=== PATIENT | male | born 1955 | race Caucasian/White ===

== ENCOUNTER → 2023-05-04 06:20 | Outpatient (REF) | payer BC, MEDICARE, OTHER, SELFPAY ==
[2023-05-04 10:02] LABS: % Basophils 1.1 % (0-2); % Eosinophils 2.1 % (0-6); % Immature Granulocytes 0.3 % (0-0.5); % Lymphocytes 21.7 % (20.5-51.1); % Monocytes 6.9 % (1.7-9.3); % Neutrophils 67.9 % (42.2-75.2); Absolute Basophils 0.1 10^3/uL (0-0.2); Absolute Eosinophils 0.2 10^3/uL (0-0.7); Absolute Lymphocytes 1.6 10^3/uL (1.2-3.4); Absolute Monocytes 0.5 10^3/uL (0.1-0.6); Hematocrit 38.9 % (39.0-52.0); Hemoglobin 13.8 g/dL (13.0-18.0); Mean Corp Hgb Conc. 35.5 g/dL (33.0-37.0); Mean Corpuscular Hgb 33.1 pg (27.0-31.0); Mean Corpuscular Volume 93.3 fL (80.0-94.0); Mean Platelet Volume 9.4 fL (7.4-10.4); Nucleated Red Blood Cells % 0 % (-); Platelet Count 225 10^3/uL (130-400); Red Blood Cell Count 4.17 10^6/uL (4.70-6.10); Red Cell Dist. Width 12.3 % (11.5-14.5); Urine Albumin Trace (Neg - Trace); Urine Bilirubin Negative (Negative); Urine Character Clear (Clear); Urine Color Yellow; Urine Glucose Negative (Negative); Urine Ketone Negative (Negative); Urine Leukocyte Trace (Negative); Urine Nitrite Negative (Negative); Urine Occult Blood Negative (Negative); Urine Urobilinogen Negative (Neg - 1+); White Blood Cell Count 7.3 10^3/uL (4.8-10.8)
[2023-05-04 10:12] LABS: Urine Squamous Cell 0-2 /LPF (Few)
[2023-05-04 10:13] LABS: Urine Red Blood Cell 0-2 /HPF (0-2)
[2023-05-04 10:14] LABS: Urine Bacteria Few (Negative)
[2023-05-04 10:15] LABS: ALT (SGPT) 33 U/L (0-50); AST (SGOT) 29 U/L (17-59); Albumin 3.5 g/dl (3.5-5.0); Alkaline Phosphatase 64 U/L (38-126); Blood Urea Nitrogen 18 mg/dl (9-20); Calcium 8.6 mg/dl (8.4-10.2); Carbon Dioxide 32 mmol/L (22-30); Chloride 99 mmol/L (98-107); Glucose 97 mg/dl (70-99); HDL Cholesterol 38 mg/dl; LDL Cholesterol, Calculated 33 mg/dl; Sodium 138 mmol/L (135-145); Total Bilirubin 1.5 mg/dl (0.2-1.3); Total Cholesterol 89 mg/dl (50-199); Total Protein 5.9 g/dl (6.3-8.2); Triglyceride 92 mg/dl (10-149); Very Low Density Lipoprotein 18 mg/dl (0-30); eGFR > 60.00
[2023-05-04 10:26] LABS: Free T4 0.88 ng/dl (0.78-2.19); Vitamin D, 25-OH*** 37.4 ng/mL (30-80)
[2023-05-04 10:39] LABS: TSH 1.91 uIU/ml (0.47-4.68)
[2023-05-04 11:00] LABS: Vitamin B12 887 pg/ml (239-931)
[2023-05-04 12:40] LABS: Glycohemoglobin (HgbA1c) 6.1 % (4.0-5.6)
[2023-05-04 17:00] LABS: PSA, Total - Diagnostic 9.05 ng/ml (0.0-4.0)
== END ==
LOC: HWLAB 06:20
PROVIDERS: ATTENDING PHYSICIAN Family Medicine; FAMILY PHYSICIAN Family Medicine
DX: R97.20 Elevated prostate specific antigen [PSA] (principal); R73.01 Impaired fasting glucose; I10 Essential (primary) hypertension; E78.2 Mixed hyperlipidemia; D64.9 Anemia, unspecified; Z86.31 Personal history of diabetic foot ulcer; R30.0 Dysuria
CPT/HCPCS: 36415; 80053; 80061; 81003; 81015; 82306; 82607; 83036; 84153; 84439; 84443; 85025

== ENCOUNTER → 2023-09-25 14:58 | Outpatient (REF) | payer BC, MEDICARE, OTHER, SELFPAY | LOC: HWRAD 14:58 | PROVIDERS: ATTENDING PHYSICIAN Internal Medicine; FAMILY PHYSICIAN Family Medicine | DX: J45.901 Unspecified asthma with (acute) exacerbation (principal); Z87.891 Personal history of nicotine dependence; R91.1 Solitary pulmonary nodule | CPT/HCPCS: 71250 ==

== ENCOUNTER → 2024-01-15 06:01 | Outpatient (REF) | payer BC, MEDICARE, OTHER, SELFPAY ==
[2024-01-15 10:19] LABS: PSA, Total - Diagnostic 6.45 ng/ml (0.0-4.0)
== END ==
LOC: HWLAB 06:01
PROVIDERS: ATTENDING PHYSICIAN Nurse Practitioner Family; FAMILY PHYSICIAN Family Medicine
DX: R97.20 Elevated prostate specific antigen [PSA] (principal); R31.29 Other microscopic hematuria
CPT/HCPCS: 36415; 84153

== ENCOUNTER → 2024-03-05 06:16 | Outpatient (REF) | payer BC, MEDICARE, OTHER, SELFPAY ==
[2024-03-05 09:19] LABS: Glycohemoglobin (HgbA1c) 5.6 % (4.0-5.6)
[2024-03-05 09:22] LABS: ALT (SGPT) 17 U/L (0-50); AST (SGOT) 22 U/L (17-59); Albumin 4.2 g/dl (3.5-5.0); Alkaline Phosphatase 59 U/L (38-126); Blood Urea Nitrogen 16 mg/dl (9-20); Calcium 8.5 mg/dl (8.4-10.2); Carbon Dioxide 28 mmol/L (22-30); Chloride 102 mmol/L (98-107); Glucose 112 mg/dl (70-99); Sodium 140 mmol/L (135-145); Total Protein 6.6 g/dl (6.3-8.2); eGFR > 60.00
== END ==
LOC: HWLAB 06:16
PROVIDERS: ATTENDING PHYSICIAN Nurse Practitioner Family
DX: R73.01 Impaired fasting glucose (principal)
CPT/HCPCS: 36415; 80053; 83036

== ENCOUNTER → 2024-07-23 11:24 | Outpatient (REF) | payer BC, MEDICARE, OTHER, SELFPAY ==
[2024-07-23 16:54] LABS: % Basophils 0.9 % (0-2); % Eosinophils 1.5 % (0-6); % Immature Granulocytes 0.3 % (0-0.5); % Lymphocytes 22.1 % (20.5-51.1); % Monocytes 6.9 % (1.7-9.3); % Neutrophils 68.3 % (42.2-75.2); Absolute Basophils 0.1 10^3/uL (0-0.2); Absolute Eosinophils 0.1 10^3/uL (0-0.7); Absolute Lymphocytes 1.5 10^3/uL (1.2-3.4); Absolute Monocytes 0.5 10^3/uL (0.1-0.6); Absolute Neutrophils 4.5 10^3/uL (1.4-6.5); Hematocrit 42.6 % (39.0-52.0); Hemoglobin 15.1 g/dL (13.0-18.0); Mean Corp Hgb Conc. 35.4 g/dL (33.0-37.0); Mean Corpuscular Hgb 32.8 pg (27.0-31.0); Mean Corpuscular Volume 92.4 fL (80.0-94.0); Mean Platelet Volume 9.6 fL (7.4-10.4); Nucleated Red Blood Cells % 0 % (-); Platelet Count 244 10^3/uL (130-400); Red Blood Cell Count 4.61 10^6/uL (4.70-6.10); Red Cell Dist. Width 12.4 % (11.5-14.5); White Blood Cell Count 6.6 10^3/uL (4.8-10.8)
[2024-07-23 17:03] LABS: ALT (SGPT) 26 U/L (0-50); AST (SGOT) 26 U/L (17-59); Albumin 4.1 g/dl (3.5-5.0); Alkaline Phosphatase 72 U/L (38-126); Blood Urea Nitrogen 16 mg/dl (9-20); Calcium 9.1 mg/dl (8.4-10.2); Carbon Dioxide 30 mmol/L (22-30); Chloride 104 mmol/L (98-107); Glucose 99 mg/dl (70-99); HDL Cholesterol 40 mg/dl; LDL Cholesterol, Calculated 62 mg/dl; Potassium 4.5 mmol/L (3.5-5.1); Sodium 141 mmol/L (135-145); Total Bilirubin 1.1 mg/dl (0.2-1.3); Total Cholesterol 131 mg/dl (50-199); Total Protein 6.8 g/dl (6.3-8.2); Triglyceride 146 mg/dl (10-149); Very Low Density Lipoprotein 29 mg/dl (0-30); eGFR > 60.00
[2024-07-23 17:22] LABS: Free T4 0.89 ng/dl (0.78-2.19)
[2024-07-23 17:36] LABS: PSA, Total - Diagnostic 7.52 ng/ml (0.0-4.0); TSH 1.31 uIU/ml (0.47-4.68)
[2024-07-24 10:52] LABS: Glycohemoglobin (HgbA1c) 5.6 % (4.0-5.6)
== END ==
LOC: HWLAB 11:24
PROVIDERS: ATTENDING PHYSICIAN Family Medicine; REFERRING PHYSICIAN Nurse Practitioner
DX: R97.20 Elevated prostate specific antigen [PSA] (principal); R35.1 Nocturia; Z86.39 Personal history of other endocrine, nutritional and metabolic disease; R73.03 Prediabetes; I10 Essential (primary) hypertension; E78.2 Mixed hyperlipidemia
CPT/HCPCS: 36415; 80053; 80061; 83036; 84153; 84439; 84443; 85025

== ENCOUNTER → 2024-09-12 11:07 | Outpatient (REF) | payer BC, MEDICARE, OTHER, SELFPAY | LOC: HWLAB 11:07 | PROVIDERS: ATTENDING PHYSICIAN Family Medicine | DX: R97.20 Elevated prostate specific antigen [PSA] (principal) | CPT/HCPCS: 36415; G0103 ==

== ENCOUNTER → 2024-10-16 12:52 | Outpatient (REF) | payer BC, MEDICARE, OTHER, SELFPAY | LOC: HWRAD 12:52 | PROVIDERS: ATTENDING PHYSICIAN Family Medicine | DX: E78.2 Mixed hyperlipidemia (principal) | CPT/HCPCS: 75571 ==

== ENCOUNTER → 2024-10-17 08:44 | Outpatient (REF) | payer BC, MEDICARE, OTHER, SELFPAY ==
[2024-10-17 12:30] LABS: Hematocrit 41.1 % (39.0-52.0); Hemoglobin 14.1 g/dL (13.0-18.0); Mean Corp Hgb Conc. 34.3 g/dL (33.0-37.0); Mean Corpuscular Volume 94.7 fL (80.0-94.0); Nucleated Red Blood Cells % 0 % (-); Platelet Count 229 10^3/uL (130-400); Red Cell Dist. Width 12.6 % (11.5-14.5)
[2024-10-17 13:11] LABS: ALT (SGPT) 19 U/L (0-50); AST (SGOT) 23 U/L (17-59); Albumin 4.3 g/dl (3.5-5.0); Alkaline Phosphatase 62 U/L (38-126); Blood Urea Nitrogen 19 mg/dl (9-20); Calcium 8.9 mg/dl (8.4-10.2); Carbon Dioxide 31 mmol/L (22-30); Chloride 106 mmol/L (98-107); Glucose 106 mg/dl (70-99); HDL Cholesterol 41 mg/dl; LDL Cholesterol, Calculated 65 mg/dl; Potassium 4.6 mmol/L (3.5-5.1); Sodium 140 mmol/L (135-145); Total Protein 6.9 g/dl (6.3-8.2); Very Low Density Lipoprotein 19 mg/dl (0-30); eGFR > 60.00
[2024-10-17 13:34] LABS: Glycohemoglobin (HgbA1c) 5.6 % (4.0-5.6); PSA, Total - Diagnostic 6.46 ng/ml (0.0-4.0); TSH 1.75 uIU/ml (0.47-4.68)
== END ==
LOC: HWLAB 08:44
PROVIDERS: ATTENDING PHYSICIAN Family Medicine
DX: R97.20 Elevated prostate specific antigen [PSA] (principal); Z86.39 Personal history of other endocrine, nutritional and metabolic disease; E78.2 Mixed hyperlipidemia; R73.03 Prediabetes
CPT/HCPCS: 36415; 80053; 80061; 83036; 84153; 84443; 85025

== ENCOUNTER 2024-12-14 23:52 | Observation (INO) | payer BC, MEDICARE, OTHER, SELFPAY ==
[2024-12-14 19:07] VITALS: BP 145/81
[2024-12-14 19:38] VITALS: BP 129/78
[2024-12-14 19:55] VITALS: BMI 30.8
[2024-12-14 20:04] VITALS: BP 125/78; BP 138/82; BP 149/79; PULSE 54; PULSE 57; PULSE 62
--- NOTE | 2024-12-14 20:05 | EDRN ---
Pt noted dizziness around 1730 when he was outside doing 'stuff'. Pt got a bad cramp in his leg, went up to hgis groin and 'felt like somebody cut me with a knife' so pt drank 3 bottles water in 5 minutes. within 30 minutes, cramp went away but pt
developed dizziness and 'felt like I was walking on a sponge, like I was taking a really long stride but I was not going any faster.' says pt kept saying he did not feel good. No headache, n/v, fever/chills/cough, cp, sob. Pt says he feels
weak and tired. Pt was outside all day in the heat. Pt notes dizziness when he stands up, not while at rest or sitting. Pt also has a stuffy nose.
[2024-12-14] MEDS: NSS 1000 IV ×2 (21:12→23:22)
[2024-12-14 21:22] LABS: Hematocrit 39.8 % (39.0-52.0); Hemoglobin 14.3 g/dL (13.0-18.0); Mean Corp Hgb Conc. 35.9 g/dL (33.0-37.0); Mean Corpuscular Volume 90.7 fL (80.0-94.0); Nucleated Red Blood Cells % 0 % (-); Platelet Count 239 10^3/uL (130-400); Red Cell Dist. Width 12.1 % (11.5-14.5)
[2024-12-14 21:38] LABS: ALT (SGPT) 16 U/L (0-50); AST (SGOT) 22 U/L (17-59); Albumin 4.3 g/dl (3.5-5.0); Alkaline Phosphatase 70 U/L (38-126); Blood Urea Nitrogen 20 mg/dl (9-20); Calcium 8.9 mg/dl (8.4-10.2); Carbon Dioxide 29 mmol/L (22-30); Chloride 105 mmol/L (98-107); Estimated Creatinine Clearance 96 ml/min; Glucose 101 mg/dl (70-99); Magnesium 2.4 mg/dl (1.6-2.3); Potassium 3.7 mmol/L (3.5-5.1); Sodium 141 mmol/L (135-145); Total Protein 7.1 g/dl (6.3-8.2); eGFR > 60.00
[2024-12-14 21:50] LABS: Troponin I < 0.012 ng/ml
[2024-12-14 22:08] VITALS: BP 128/79
--- NOTE | 2024-12-14 22:12 | EDRN ---
Dr Schmitz asked that pt get up and walk around to see how he feels. Pt feels much better. Ambulatory to bathroom
--- NOTE | 2024-12-14 23:08 | ED.GENMED ---
History of Present Illness
General
Chief Complaint: Dizziness
Source: patient and spouse
Exam Limitations: none
Time Seen by Provider: 12/14/24 19:51
Nursing documentation reviewed up to this point in time: agreed with
History of Present Illness
History of Present Illness:
Patient presents to ED secondary to persistent dizzy sensation with near syncope this afternoon. Patient states that he was outside working for approximately 2 hours, without drinking much fluids. When he came inside, he started to experience leg
cramping sensation. Patient proceeded to drink water with gradual resolution of leg cramping sensation. However, when he got up to walk, he started to feel dizziness with near syncope, which has continued. Denies headache. Denies blurred vision.
Denies difficulty with speech. Denies loss of sensation or weakness. Denies recent illness. Denies recent change in medications or diet. Denies previous history of similar symptoms. Per spouse, patient was and continues to appear flushed.
Past History
Past History
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
ED Past Surgical History: Cardiac (Radiofrequency ablation for WPW) and Other (Left leg vein stripping)
Social History
Tobacco: Former smoker
Alcohol: Occasional
Personal:
Living: with family
Employment: Employed
Family History
Family History: Other (Noncontributory)
Review of Systems
Review of Systems
Allergies reviewed?: Yes
All Other Systems: ROS reviewed and negative except as documented in HPI and ROS
Constitutional: Reports no symptoms
Respiratory: Reports no symptoms
Cardiac: Reports no symptoms
ABD/GI: Reports no symptoms
Musculoskeletal: Reports muscle pain
Skin: Reports no symptoms
Neurological: Reports dizzy
Phy Exam
Physical Exam
Physical Exam:
Physical Exam
General: mild distress, not acutely ill. afebrile
Head: nc/at. eomi. no nystagmus
Neck: supple. no meningeal signs.
Heart: s1/s2 regular rate and rhythm
Lungs: no acute respiratory distress. clear bilaterally
Abdomen: normal bowel sounds. not tender.
Neuro: alert and oriented x 3. no focal neurological deficits. normal speech
Skin: no rash
Psychiatric: well kept. interactive and cooperative
Extremities: no edema. no calf tenderness.
Course
Orders/Labs/Results
Orders:
Orders
12/14/24 19:15
EKG [Electrocardiogram (*1)] Urgent
Reason for Study: Vertigo / Dizzy
12/14/24 19:16
EKG- Treatment ONCE
12/14/24 20:56
0.9% Sodium Chloride 1000 ml [Nss] 1,000 ml IV BOLUS
12/14/24 21:13
Complete Blood Count/With Diff Urgent
Comprehensive Metabolic Panel Urgent
Creatine Phosphokinase Urgent
Comment: ADD ON
Magnesium Urgent
Troponin I Urgent
12/14/24 23:08
CT Head & Neck Angio W/wo IV Urgent
Comment:
Reason For Exam: dizziness
12/14/24 23:10
Add On- LAB Urgent
Tests Added?: CPK
12/14/24 23:15
0.9% Sodium Chloride 1000 ml [Nss] 1,000 ml IV 125 mls/hr
12/14/24 23:42
Admit/Transfer Patient As Directed
Co-Sign Provider:
Level of Care: Observation services
Assign to:: Telemetry
Physician / Group: Ren
Diagnosis: dizziness
Reason for Telemetry: Syncope
Date to Stop Telemetry: 12/16/24
Time to Stop Telemetry: 11:00
PRN Pain Medication Management As Directed
May give lesser potent ordered pain med per pt: Yes
preference::
Protocol:: Medication orders for pain may be administered in a
manner that supports deferring to patient preference
when the pt is:
- Requesting an ordered lesser potent pain medication.
Least to most potent pain medications are defined
as: acetaminophen < NSAID < tramadol < opioids
(morphine, oxycodone, hydromorphone).
- Requesting a lesser dose of the same medication IF
ORDERED.
- Requesting a less intrusive route of administration
if both routes are prescribed by the provider (PO <
IV).
12/14/24 23:44
Code Status As Directed
Resuscitation Status: Full Code
12/16/24 11:00
DC Protocol for Telemetry ONCE
Abnormal Lab Results
12/14/24
21:13
RBC 4.39 L 10^6/uL
(4.70-6.10)
MCH 32.6 H pg
(27.0-31.0)
Absolute Monos (auto) 0.8 H 10^3/uL
(0.1-0.6)
Monocytes % 10.2 H %
(1.7-9.3)
Glucose 101 H mg/dl
(70-99)
Magnesium 2.4 H mg/dl
(1.6-2.3)
Total Bilirubin 1.8 H mg/dl
(0.2-1.3)
Creatine Kinase 214 H U/L
(55-170)
12/14/24 21:13
12/14/24 21:13
Vital Signs
Initial and Last Documented VS:
Initial Vital Signs
Temp Pulse Resp BP Pulse Ox
97.7 F 55 20 145/81 99
12/14/24 19:07 12/14/24 19:07 12/14/24 19:07 12/14/24 19:07 12/14/24 19:07
Last Documented Vital Signs
Temp Pulse Resp BP Pulse Ox
97.7 F 52 17 132/79 97
12/14/24 19:07 12/15/24 01:00 12/15/24 01:00 12/15/24 01:00 12/15/24 01:00
MDM/Problems Addressed
MDM/Problems Addressed:
History and exam consistent with likely symptoms secondary to heat exhaustion/dehydration, possible heatstroke. However, despite IV fluids, patient remains symptomatic, especially when ambulating. As such, patient will be admitted for further
evaluation and treatment, with continued IV fluid. Will obtain CT angiogram head and neck.
*Pulse Oximetry
SaO2: 96
Oxygen Mode of Delivery: Room air
Patient hypoxic: no
*Critical Care Note
Total Time (30-74mins, 75-104mins- exclusive of procedures): Not Applicable
ED Attending Note
-
Portions of this chart may have been created with voice recognition software.� Occasional wrong word or��sound alike� substitutions may have occurred due to the inherent limitations of voice recognition software.
Discharge Plan
Departure
Patient Disposition: Admit
Date of Disposition: 12/14/24
Time of Disposition: 23:15
Admit to: Telemetry
Presentation/result/management discussed w/ accepting MD/DO: Hospitalist
Discharge Problem:
Dizziness
Interventions
Interventions:
*Risk Screen - Suicide Last Done: 12/14/24 19:07
*General Assessment Last Done: 12/14/24 19:07
*Neglect/Abuse Screening Last Done: 12/14/24 19:07
*ED COVID-19 Vaccine History Last Done: 12/14/24 19:07
ED- Neurological Assessment Last Done: 12/14/24 20:05
ED- Cardiac Assessment Last Done: 12/14/24 20:05
[2024-12-14 23:25] VITALS: BP 136/76
--- NOTE | 2024-12-14 23:30 | HPS.HSE ---
Family Physician
-
Family Physician: NOT KNOW UNKNOWN - PT DOES
Chief Complaint
-
Dizziness
History of Present Illness
This is a 69-year-old with past medical history significant for Zdzet-Pyrlmmorq-Dpstu syndrome status post tract ablation, hypertension, hyperlipidemia, obesity, cervical spine stenosis presented to the emergency department with persistent dizziness.
Stated that he was working outside for approximately 2 hours and then developed crampy sensation in his leg bilaterally and radiating of his right leg. He felt this was likely secondary to dehydration. He went inside to drink some water with
gradual resolution of the cramps. He sat down and had dinner. After dinner he reported that when he got up he felt dizzy. He denies passing out. He reported that the dizziness was worse with walking and standing and improved when he sat down.
He says that if he moves his head he might have some dizziness but it was not clear. He denies any spinning sensation. He denies any nausea vomiting or diaphoresis. He denied having any palpitations. He denied any chest pain. He denies any
shortness of breath. He denies any focal neurological deficits including numbness tingling weakness. He has no diaphoresis. He denies any recent changes in his medication. According to spouse patient appears flushed.
In the emergency department he was afebrile, blood pressure was 128/80 with a pulse rate of 49 and he was satting at 96% on room air. ECG showed sinus bradycardia rate of 49 and otherwise normal. This initial troponin was negative.
CBC was unremarkable. Electrolytes BUN and creatinine were normal.
Medical History
Past Medical History
Past Medical History: Reports Arrhythmia (WPW status post ablation, PVCs), GERD, HTN, Hypercholesterolemia and Other (Morbid obesity, migraine headaches,)
Past Surgical History: Reports None and Other (Brother: CVA (2 mos ago), Asthma, DM Father: DM, CVA (70s) Mother: DM)
Social History
Tobacco: Former Smoker
Alcohol: None
Drug: None
Family History
Family History: Not pertinent
Allergies / Home Medications
Allergies reflects when Allergies were last updated in [facility].
Home Medications with original date entered in [facility]
Allergy/Medication List:
Allergies
Allergy/AdvReac Type Severity Reaction Status Date / Time
No Known Allergies Allergy Verified 12/14/24 19:14
Home Medications
cyclobenzaprine 10 mg tablet 10 mg PO TIDPRN PRN muscle tightness/spasm #30 tabs 09/26/14
finasteride 1 tab PO DAILY 12/14/24
hydrochlorothiazide 1 tab PO DAILY 12/14/24
metoprolol succinate 50 mg tablet,extended release 24 hr 50 mg PO BID 12/14/24
tamsulosin 0.4 mg capsule 0.8 mg PO DAILY 12/14/24
valsartan 1 tab PO DAILY 12/14/24
Review of Systems
-
Constitutional: Reports No Symptoms
EENT: Reports No Symptoms
Respiratory: Denies Cough or Trouble Breathing
Cardiac: Reports Syncope; Denies Chest Pain, Diaphoresis or Palpitations
Abdomen/GI: Reports No Symptoms
: Reports No Symptoms
Musculoskeletal: Reports No Symptoms
Skin: Reports No Symptoms
Neurological: Reports Dizzy
Endocrine: Reports No Symptoms
Hematologic/Lymphatic: Reports No Symptoms
Psych: Reports No Symptoms
Physical Exam
Vital Signs
Vital Signs
Temp Pulse Resp BP Pulse Ox
97.7 F 49 22 128/79 96
12/14/24 19:07 12/14/24 22:08 12/14/24 22:08 12/14/24 22:08 12/14/24 23:08
Physical Exam
General: Well Nourished and No Apparent Distress
HEENT: NormoCephalic, Anicteric, Moist mucous membranes, PERRLA and Other (Evident rhinorrhea. No posterior pharyngeal erythema.)
Respiratory: Clear; No Wheezes, Rales or Rhonchi
Cardiac: S1/S2 and Bradycardia; No Murmur, Rub, Gallop, Peripheral Edema or Calf Tenderness
GI: Soft, Non Tender, Non Distended and Normal Bowel Sounds
Musculoskeletal: No Clubbing, No Cyanosis and No Edema
Neuro: AO x 3 and Nonfocal/grossly intact
Hematologic/Lymphatic: No Lymphadenopathy
Laboratory Results
-
12/14/24 21:13
12/14/24 21:13
Laboratory Results
Total Bilirubin 1.8 mg/dl (0.2-1.3) H 12/14/24 21:
AST 22 U/L (17-59) 12/14/24 21:
ALT 16 U/L (0-50) 12/14/24 21:
Alkaline Phosphatase 70 U/L (38-126) 12/14/24 21:13
Troponin I < 0.012 ng/ml 12/14/24 21:13
Data Reviewed
-
Medical Tests (Nuc Med, Echo, EKG etc): Image Personally Visualized and interpreted
Lab Data: Labs Reviewed by me
Old Records: Reviewed
Impression/Plan
-
IMPRESSION:
69-year-old with past medical history significant for Pqgxr-Cilzmnmze-Wgbek status post tract ablation, hypertension, hyperlipidemia presenting to the emergency department with episode of dizziness. He appeared to have some mild dehydration after
some exertion earlier in the day and when he stood up in his kitchen he had a near syncopal episode. Spouse reported him being apparently flushed. His workup in the ED was unremarkable with normal troponin, ECG with a sinus bradycardia on
metoprolol, electrolytes BUN/creatinine were normal. CBC normal. He is currently asymptomatic. No focal neurological deficits.
PLAN:
Near Syncope - suspect orthostatic based on hx of symptoms possibly due to dehydration + effective beta blocked w/ sinus arun. Has normal vitals otherwise.
- admit to telemetry observation
- getting CT angio of head and neck
- telemetry x 24 hours
- iv fluids overnight
- orthostatic vs
- echo
- no cp or sb, no indication for PE
- holding hctz, continue his valsartan
- monitor on his current metoprolol, if persistently arun, reduce dose to 25 bid
- cardiology consult
DVT PPX - lovenox sq
Code status - Full Code
[2024-12-15] VITALS (8 sets, daily range): BP systolic 132–155; BP diastolic 73–90; PULSE 48–53; BMI 30.3
[2024-12-15] MEDS: NSS 1000 IV (06:39)
[2024-12-15] MEDS: TOPROL XL 25 MG PO (07:44)
[2024-12-15] MEDS: PROSCAR 5 MG PO (07:44)
--- NOTE | 2024-12-15 08:05 | W.PN.HOSP.TC ---
Today's Communication/Plan
-
IVF completed
cont monitoring on Tele
Home Valsartan resumed with holding parameters.
Likely Discharge tomorrow if remains stable/cont to improve
Assessment / Plan
Assessment / Plan
Physical Exam
General: No acute distress, appears comfortable at this time
HEENT: NormoCephalic, Anicteric, Moist mucous membranes, PERRLA
Respiratory: Clear to auscultation b/l
Cardiac: S1/S2 Bradycardia; No Murmur, Rub, Gallop
GI: Soft, Non Tender, Non Distended and Bowel sounds present
Musculoskeletal: No Clubbing, No Cyanosis and No Edema
Neuro: AO x 3 conversant coherent
Psych: Calm
69-year-old with past medical history significant for Iwkil-Wvvquxqej-Cbilr status post tract ablation, hypertension, hyperlipidemia presenting to the emergency department with episode of dizziness. He appeared to have some mild dehydration after
some exertion earlier in the day and when he stood up in his kitchen he had a near syncopal episode. Spouse reported him being apparently flushed. His workup in the ED was unremarkable with normal troponin, ECG with a sinus bradycardia on
metoprolol, electrolytes BUN/creatinine were normal. CBC normal. He is currently asymptomatic. No focal neurological deficits.
PLAN:
Near Syncope - suspect due to dehydration + effective beta blocked w/ sinus arun. Possibly polypharmacy
- monitor on Tele
- CT angio of head and neck appreciated no acute abn's
- IVF completed
- orthostatic vs neg for hypotension
- ECHO appreciated EF 60% no significant valve abn's noted
- holding hctz, continue home valsartan with holding parameters
- cardiology consult appreciated home Metoprolol reduced to 25 mg daily, outpt monitor set up on discharge
DVT PPX - lovenox sq
Code status - Full Code
Discussed with patient and his Jak
I spent a total of 40 minutes with the patient or on the floor. More than 50% of this time involved counseling and coordination of care.
Anticipated Discharge: Within 24 hours
Subjective/Interval History
-
Date of Service: December 15, 2024
No acute distress, sitting up comfortably in bed, reports overall feeling well, symptoms resolved. Jak present during evaluation.
Objective Data
-
Labs:
Laboratory Results
12/14/24 12/15/24
21:13 08:01
WBC 7.5 Pending
Hgb 14.3 Pending
Hct 39.8 Pending
Plt Count 239 Pending
Sodium 141 Pending
Potassium 3.7 Pending
Chloride 105 Pending
Carbon Dioxide 29 Pending
BUN 20 Pending
Creatinine 0.9 Pending
Glucose 101 H Pending
Calcium 8.9 Pending
Total Bilirubin 1.8 H
AST 22
ALT 16
Alkaline Phosphatase 70
Vital Signs:
Vital Signs
Temp Pulse Resp BP Pulse Ox
97.5 F 56 18 132/74 99
12/15/24 07:51 12/15/24 07:51 12/15/24 07:51 12/15/24 07:51 12/15/24 07:51
I&O
12/14/24 12/15/24 12/16/24
06:59 06:59 06:59
Intake Total 1000 / 1000
Output Total 625 / 625
Balance 375 / 375
[2024-12-15 08:25] LABS: Hematocrit 40.1 % (39.0-52.0); Hemoglobin 14.2 g/dL (13.0-18.0); Mean Corp Hgb Conc. 35.4 g/dL (33.0-37.0); Mean Corpuscular Volume 94.6 fL (80.0-94.0); Platelet Count 215 10^3/uL (130-400); Red Cell Dist. Width 12.1 % (11.5-14.5)
--- NOTE | 2024-12-15 08:30 | CARDSERVLU ---
Echocardiogram with Lumason completed after protocol screening completed. Allergies verified.
Patent IV site: _R AC____
IV site flushed with 0.9% NaCl pre and post administration.
Diluted bolus method utilized to enhance visualization of ventricular morgan.
Total volume given: __2.5__ mL
Patient tolerated all procedures well without complications.
--- NOTE | 2024-12-15 08:50 | CON.CAR ---
Addendum entered and electronically signed by Darcy Ny DO 12/15/24 13:43:
I saw and examined the patient.
The Principal Cyber Engineer's note was reviewed and I agree with the note.
Comment: Patient was independently seen and examined, documented HPI and and discussed outlined planSharla Quiroz is a 69-year-old gentleman previously followed by Dr. Woods at [facility] transferring care to [facility] with a new
patient appointment to see Dr. Cruz on December 17, 2024. 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 He underwent WPW ablation in
2004 at [facility]. He has no known history of coronary artery disease with recent calcium score CT 10/16/2024 with calcium score 0 and no significant abnormalities of the limited chest imaging. He has no history of atrial fibrillation, stroke/TIA,
or thromboembolic disease. He has no history of heart failure or valvular heart disease. He does have a history of hypertension, hyperlipidemia, and GERD. Recent echocardiogram obtained from [facility] December 15, 2024 found normal
biventricular size and systolic function with EF 60% and no significant valve abnormalities or pericardial effusion.
.
He states he had been working around the house and in the yard over the weekend where he sweated profusely. Although he was drinking water he admits that he was likely dehydrated. He developed lightheadedness and dizziness with standing which did
not improve after several bottles of water at home. He denies chest pain or pressure. He denies syncope. He then developed a cramp in his calf; although he has no personal history of thromboembolic disease, his in-laws do have a history of clots
and he became concerned. Approximately 1 week ago he was started on finasteride and tamsulosin for BPH. In the emergency room he was found to be in sinus bradycardia with heart rates 49 bpm; no obvious preexcitation on twelve-lead EKG and no
ischemic changes. Labs 12/14/2024: Hemoglobin 14.3, BUN/creatinine 20/0.9, NA 141, K3.7, mag 2.4, CK2 114, troponin less than 0.012. Head/neck CTA 12/15/2024: No acute intracranial pathology. He has received IV fluid hydration with improved symptoms.
He has had no arrhythmias on telemetry. Antihypertensive therapy including outpatient metoprolol succinate 50 mg twice daily and valsartan were held. He denies being on hydrochlorothiazide.
GEN: No distress, awake, Ox3
HEENT: supple, anicteric, mmm
LUNGS: CTA, no wheezes/rales
CV: Reg, S1/S2 no murmur
ABD: soft, BS+, NT/ND
EXT: No edema
NEURO: Gross non-focal
Plan:
Dehydration with orthostatic hypotension/near syncope
-Symptoms have improved with IV hydration overnight and holding his anti per tensive therapy.
-CTA head and neck unremarkable
-Recent calcium score 0 with no anginal symptoms
-Telemetry monitoring without tachy or bradycardia arrhythmia
-2D echocardiogram pending
-Reduce metoprolol succinate to 25 mg once daily. We can reassess heart rate trends and dose at upcoming outpatient appointment on December 19
-Continue valsartan
-Will arrange a 2-week outpatient rhythm star bus driver/monitor at time of discharge
History of WPW status post ablation 2004
-Twelve-lead EKG at rest without delta wave or evidence of preexcitation
-Sinus bradycardia on telemetry without high degree AV block or pauses. No tachyarrhythmia
-Outpatient bus driver/monitor
BPH recently started on tamsulosin and finasteride which can result in orthostatic hypotension.
-Monitor heart rate/blood pressure trends with reduction of metoprolol.
I have asked patient to ambulate and assess symptoms off IV fluids. 2D echocardiogram pending. If 2D echocardiogram without significant findings, plan for discharge home with outpatient follow-up on Sunday. Rhythm Star bus driver/monitor will be
arranged
Original Note:
Consultation
Consultation Request
Date/Time Consultation Requested: 12/15/2024, 0204
Date/Time Consultation Performed: , 1144
Requesting Provider: Dr Mcclure
Performing Provider: SAUL Wayne for Dr Ny
Reason for Consultation: Dizziness, history of WPW
Medical History
-
Chief Complaint: Dizziness
History of Present Illness:
69-year-old male with past medical history Bvsyu-Sfunlsqdl-Uzzdh syndrome status post ablation in 2004 at [facility], hypertension, hyperlipidemia, obesity, cervical spine stenosis presents to the ED with persistent dizziness. He was working outside
on 12/14/2024 for 2 hours and developed cramping in his legs and thought he was dehydrated. He drank water and sat down and had dinner. When he got up from dinner he felt dizzy. Dizziness worse with walking and standing and improved with sitting.
No palpitations, chest pain, shortness of breath, syncope. Presented to the ED where EKG showed sinus bradycardia 49 bpm, QTc 406 ms
Labs 12/14/2024: Hemoglobin 14.3, BUN/creatinine 20/0.9, NA 141, K3.7, mag 2.4, CK2 114, troponin less than 0.012.
head/neck CTA 12/15/2024: No acute intracranial pathology
Home meds: Metoprolol succinate 50 mg twice daily, finasteride 5 mg daily, tamsulosin 0.8 mg daily
Past medical history:
WPW status post ablation in [address] Woods at [facility]
Hypertension
Hyperlipidemia
GERD
Obesity
Migraines
Past Medical History
Past Medical History: Other (As above)
Past Surgical History: Other (Ablation 2004)
Social History
Tobacco: Former Smoker
Alcohol: None
Drug: None
Personal:
Family History
Family History: Other (Brother and father with CVA)
Allergies / Home Medications
Allergy/AdvReac Type Severity Reaction Status Date / Time
No Known Allergies Allergy Verified 12/14/24 19:14
�Medication �Instructions �Recorded �Confirmed �Type
cyclobenzaprine 10 mg tablet 10 mg PO TIDPRN PRN muscle 09/26/14 12/14/24 Rx
tightness/spasm #30 tabs
finasteride 1 tab PO DAILY BPH 12/14/24 12/14/24 History
hydrochlorothiazide 1 tab PO DAILY Fluid 12/14/24 12/14/24 History
Retention/Swelling
metoprolol succinate 50 mg 50 mg PO BID Blood Pressure 12/14/24 12/14/24 History
tablet,extended release 24 hr
tamsulosin 0.4 mg capsule 0.8 mg PO DAILY Urinary Issue 12/14/24 12/14/24 History
valsartan 1 tab PO DAILY Blood Pressure 12/14/24 12/14/24 History
Review of Systems
-
History Source: Patient
All other systems: Negative unless noted
Physical Exam
Vital Signs
Temp Pulse Resp BP Pulse Ox
97.5 F 56 18 132/74 99
12/15/24 07:51 12/15/24 07:51 12/15/24 07:51 12/15/24 07:51 12/15/24 07:51
Lab Results
12/15/24 08:01
Troponin I < 0.012 ng/ml 12/14/24 21:13
GEN: No distress, awake, Ox3
HEENT: supple, anicteric, mmm
LUNGS: CTA, no wheezes/rales
CV: Reg, S1/S2 no murmur
ABD: soft, BS+, NT/ND
EXT: No edema
NEURO: Gross non-focal
SKIN: No rash
Impression / Plan
-
PCP:
Primary urology physician: Sukhdev Wayne at [facility] but switching to [facility] and has new patient appointment to see Dr. Bush on 12/17/2024.
Previous cardiovascular testing:
Echo 06/27/2012: EF 60%
Nuclear stress test 06/27/2012: 10 minutes 30 seconds on Satnam protocol: Small fixed inferior defect consistent with soft tissue attenuation. Otherwise normal perfusion
Echo 2022: Preserved ejection fraction
Stress test 2021: Negative
CT calcium score 10/16/2024: 0
Echo with Lumason 12/15/2024: Normal LV/RV size and function, EF 60%, no significant valvular abnormalities, no pericardial effusion.
Plan:
69-year-old male with past medical history Ighov-Kfxoesgck-Ambiw syndrome status post ablation in 2004 at [facility], hypertension, hyperlipidemia, obesity, cervical spine stenosis presents to the ED with persistent dizziness, worse with walking and
standing. Occurred in setting of him working outside for 2 hours. EKG normal sinus rhythm/sinus bradycardia no evidence of preexcitation. Labs unremarkable and CTA head and neck with no acute pathology.
Plan:
Dizziness
- Presents with dizziness, worse with standing
-Check orthostatic blood pressures
- Telemetry personally reviewed. Normal sinus rhythm/sinus bradycardia heart rates 40s to 60s
-He was started on medications forProstate about a week ago so this could be contributing to lower blood pressures
- On Toprol 50 mg twice daily in outpatient setting
- Would reduce Toprol to 25 mg once a day
- Will arrange for outpatient monitor on discharge
-He tells me in outpatient setting he is on valsartan and med list also lists hydrochlorothiazide.
-Would stop hydrochlorothiazide and consider reducing valsartan dose.
- Patient has follow-up in our office on 12/17/2024
Data Reviewed
-
EKG: Tracing Personally Visualized and interpreted
Labs: Labs Reviewed by me
[2024-12-15 08:55] LABS: Blood Urea Nitrogen 15 mg/dl (9-20); Calcium 8.3 mg/dl (8.4-10.2); Carbon Dioxide 30 mmol/L (22-30); Chloride 107 mmol/L (98-107); Estimated Creatinine Clearance 107 ml/min; Glucose 98 mg/dl (70-99); Potassium 4.0 mmol/L (3.5-5.1); Sodium 142 mmol/L (135-145); eGFR > 60.00
--- NOTE | 2024-12-15 14:45 | CM ---
Chart reviewed. Met with patient and at bedside. PIERCE given and placed on chart. LIves with his in a 3 story home but only uses the first 2 floors. NO hx of DMA, HH, O2 or SNF. Is independent in ADLs and IADLs. NO hx of O2, DME, HH or SNF.
Denies any insecurities. PCP and Rx are incorrect in the computer. CM called admissions to update information, Confirmed insurance and drug coverage.
is upset about the observation status of the patient. Stated that no one informed her that the patient was being admitted as OBS. Stated the ER staff told her that this admission was 'medically necessary' so she believed that this meant
'inpatient' status. Detective Sergeant Ashley Harding made aware of 's concern. CM will check tomorrow to see if patient converts to inpatient status.
Updated PCP and RX
PCP: Dr Simpson in [place]
RX: Jewel/Jose
Plan: Home with no needs.
[2024-12-15] MEDS: NSS IV (16:11)
[2024-12-15] MEDS: LOVENOX 40 MG SC (17:13)
[2024-12-15] MEDS: FLOMAX 0.8 MG PO (17:13)
[2024-12-16 03:29] VITALS: BP 166/96
[2024-12-16 06:00] VITALS: BMI 30.1
[2024-12-16 07:00] VITALS: BP 148/85
--- NOTE | 2024-12-16 07:40 | W.PN.HOSP.TC ---
Today's Communication/Plan
-
discharge
Assessment / Plan
Assessment / Plan
Physical Exam
General: No acute distress, appears comfortable at this time
HEENT: NormoCephalic, Anicteric, Moist mucous membranes, PERRLA
Respiratory: Clear to auscultation b/l
Cardiac: S1/S2 Bradycardia; No Murmur, Rub, Gallop
GI: Soft, Non Tender, Non Distended and Bowel sounds present
Musculoskeletal: No Clubbing, No Cyanosis and No Edema
Neuro: AO x 3 conversant coherent
Psych: Calm
69-year-old with past medical history significant for Btdtl-Sdldpwqsw-Xfntw status post tract ablation, hypertension, hyperlipidemia presenting to the emergency department with episode of dizziness. He appeared to have some mild dehydration after
some exertion earlier in the day and when he stood up in his kitchen he had a near syncopal episode. Spouse reported him being apparently flushed. His workup in the ED was unremarkable with normal troponin, ECG with a sinus bradycardia on
metoprolol, electrolytes BUN/creatinine were normal. CBC normal. He is currently asymptomatic. No focal neurological deficits.
PLAN:
Near Syncope - suspect due to dehydration + effective beta blocked w/ sinus arun. Possibly polypharmacy
- monitor on Tele
- CT angio of head and neck appreciated no acute abn's
- IVF completed
- orthostatic vs neg for hypotension
- ECHO appreciated EF 60% no significant valve abn's noted
- discontinue hctz
- cardiology consult appreciated home Metoprolol reduced to 25 mg daily, home valsartan reduced to 160 mg daily, outpt monitor set up on discharge
-Medically stable for discharge home with outpatient follow up recommendations
DVT PPX - lovenox sq
Code status - Full Code
Discussed with patient and his Jak
Total Time Preparing Discharge __40 minutes including examination of the patient, summary of the hospital stay, instructions for continuing care to all relevant caregivers; and preparation of discharge records, prescriptions, and referral
forms if necessary.
Anticipated Discharge: Today
Subjective/Interval History
-
Date of Service: December 16, 2024
No acute distress, sitting up comfortably in bed. overall reports feeling well. Ambulating without need for assist device. Denies new acute issues. Eager to go home.
Objective Data
-
Labs:
Laboratory Results
12/16/24
06:55
Sodium Pending
Potassium Pending
Chloride Pending
Carbon Dioxide Pending
BUN Pending
Creatinine Pending
Glucose Pending
Calcium Pending
Vital Signs:
Vital Signs
Temp Pulse Resp BP Pulse Ox
97.9 F 59 20 166/96 99
12/16/24 03:29 12/16/24 03:29 12/16/24 03:29 12/16/24 03:29 12/16/24 03:29
I&O
12/15/24 12/16/24 12/17/24
06:59 06:59 06:59
Intake Total 1000 / 1000 3240 / 3240
Output Total 625 / 625 1320 / 1320
Balance 375 / 375 192 / 192
[2024-12-16 08:19] LABS: Blood Urea Nitrogen 13 mg/dl (9-20); Calcium 8.4 mg/dl (8.4-10.2); Carbon Dioxide 32 mmol/L (22-30); Chloride 107 mmol/L (98-107); Estimated Creatinine Clearance 96 ml/min; Glucose 94 mg/dl (70-99); Potassium 4.2 mmol/L (3.5-5.1); Sodium 141 mmol/L (135-145); eGFR > 60.00
[2024-12-16] MEDS: TOPROL XL 25 MG PO (08:30)
[2024-12-16] MEDS: PROSCAR 5 MG PO (08:30)
[2024-12-16] MEDS: DIOVAN 40 MG PO (08:31)
[2024-12-16] MEDS: FLUSH (NSS) 1 FLUSH IV (08:31)
[2024-12-16 08:45] VITALS: BP 155/60; BP 163/100; BP 170/87; PULSE 56; PULSE 57; PULSE 60
--- NOTE | 2024-12-16 10:23 | W.PN.CARDCBS ---
Addendum entered and electronically signed by Darcy Ny DO 12/16/24 10:54:
Cardiology appointment in our office to establish care with Dr. Hutchinson was changed from 12/17/2024 to 01/14/2025. Appointment will be with Dr. Hutchinson At the [facility] at 3:40 PM. Patient and are aware of this which and are agreeable.
Original Note:
Today's Communication / Plan
-
See medication changes listed in progress note
Stable from a cardiac stand for discharge today. Outpatient cardiac follow-up arranged.
Impression / Plan
-
PCP:
Primary speech scientist: uSkhdev Wayne at [facility] but switching to [facility] and has new patient appointment to see Dr. Bush on 12/17/2024.
Previous cardiovascular testing:
Echo 06/27/2012: EF 60%
Nuclear stress test 06/27/2012: 10 minutes 30 seconds on Satnam protocol: Small fixed inferior defect consistent with soft tissue attenuation. Otherwise normal perfusion
Echo 2022: Preserved ejection fraction
Stress test 2021: Negative
CT calcium score 10/16/2024: 0
Echo with Lumason 12/15/2024: Normal LV/RV size and function, EF 60%, no significant valvular abnormalities, no pericardial effusion.
Plan:
69-year-old male with past medical history Ythcb-Ulvigszrd-Qlthj syndrome status post ablation in 2004 at [facility], hypertension, hyperlipidemia, obesity, cervical spine stenosis presents to the ED with persistent dizziness, worse with walking and
standing. Occurred in setting of him working outside for 2 hours. EKG normal sinus rhythm/sinus bradycardia no evidence of preexcitation. Labs unremarkable and CTA head and neck with no acute pathology.
Plan:
Dehydration with orthostatic hypotension/near syncope
-Symptoms have improved with IV hydration overnight
-Antihypertensive medications held on admission slowly being restarted.
-Patient was recently started on Flomax and finasteride for BPH
-CTA head and neck unremarkable
-Recent calcium score 0 with no anginal symptoms
-Telemetry monitoring with sinus bradycardia without high degree AV block or pauses. No tachyarrhythmia.
-2D echocardiogram Normal biventricular size and systolic function with no significant valve abnormalities. No pericardial effusion.
Medication changes at time of discharge
-Hold further hydrochlorothiazide
-Reduce metoprolol succinate to 25 mg once daily. [Patient had been on metoprolol succinate 50 mg twice daily]; we can reassess heart rate trends and dose at upcoming outpatient appointment tomorrow 12/17
-Continue valsartan but will reduce dose from 320 mg once daily to 160 mg daily
- Patient has history of edema with amlodipine.
-Will likely need outpatient titration pending blood pressure trends
History of WPW status post ablation 2004 with sinus bradycardia
-Twelve-lead EKG at rest without delta wave or evidence of preexcitation
-Sinus bradycardia on telemetry without high degree AV block or pauses. No tachyarrhythmia
-Outpatient metoprolol reduced from 50 mg twice daily to 25 mg once daily. Pending heart rate trends on monitor may need to be uptitrated to twice daily.
-Will arrange a 2-week outpatient rhythm star lamp cleaner will be placed today
BPH recently started on tamsulosin and finasteride which can result in orthostatic hypotension.
- Continue medications and follow-up with urology
Plan to discharge today home. Rhythm star monitor being arranged prior to discharge.
Patient has follow-up to establish care in our office tomorrow. Calling office to see if we can reschedule appointment for 2 weeks following lamp cleaner.
Progress Note - Regional Program Manager
Subjective
Date of Service: December 16, 2024
Seen and examined. Patient feels back to baseline without dizziness lightheadedness or scotoma. No chest pain or pressure. No palpitations.
Objective
Labs:
12/15/24 08:01
12/16/24 06:55
Labs
Hgb 14.2 g/dL (13.0-18.0) 12/15/24 08:01
Hct 40.1 % (39.0-52.0) 12/15/24 08:01
Plt Count 215 10^3/uL (130-400) 12/15/24 08:01
Sodium 141 mmol/L (135-145) 12/16/24 06:55
Potassium 4.2 mmol/L (3.5-5.1) 12/16/24 06:55
BUN 13 mg/dl (9-20) 12/16/24 06:55
Creatinine 0.8 mg/dL (0.7-1.3) 12/16/24 06:55
Glucose 94 mg/dl (70-99) 12/16/24 06:55
Troponins
12/14/24
21:13
Troponin I < 0.012
Vital Signs and I&O:
Vital Signs
Temp Pulse Resp BP Pulse Ox
97.7 F 56 16 148/85 98
12/16/24 07:00 12/16/24 08:31 12/16/24 07:00 12/16/24 08:31 12/16/24 08:27
Vital Signs
Temp Pulse Resp BP Pulse Ox
97.7 F 56 16 148/85 98
12/16/24 07:00 12/16/24 08:31 12/16/24 07:00 12/16/24 08:31 12/16/24 08:27
Intake & Output
12/14/24 12/15/24 12/16/24 12/17/24
06:59 06:59 06:59 06:59
Intake Total 1000 / 1000 3240 / 3240
Output Total 625 / 625 1320 / 1320
Balance 375 / 375 192 / 1919
Physical Exam
Physical Exam
GEN: No distress, awake, Ox3
HEENT: supple, anicteric, mmm
LUNGS: CTA, no wheezes/rales
CV: Reg, S1/S2 no murmur
ABD: soft, BS+, NT/ND
EXT: No edema
NEURO: Gross non-focal
[2024-12-16] MEDS: LOW STRENGTH ASPIRIN 81 MG PO (10:31)
[2024-12-16 11:00] VITALS: BP 153/89
--- NOTE | 2024-12-16 11:55 | W.DCSUMMARY ---
Discharge Summary
Discharge Data
Date of Admission: 12/14/24
Date of Discharge: 12/16/24
-
Pending Results: No
Discharge Plan
-
Patient Disposition: Home (Routine Discharge)
Discharge Diagnosis/Procedures: Near Syncope - suspect due to dehydration, Bradycardia, and Possible polypharmacy
Condition: Good
Diet: Low Cholesterol and 2 Gram Sodium
Activity: As tolerated
Driving Restrictions: As prior to admission
Bathing Restrictions: None
Activity Restrictions/Additional Instructions:
Follow up with primary care provider in 1 week of discharge and keep your appointment with Cardiology.
Metoprolol has been reduced to 25 mg daily due to concern symptomatic bradycardia.
Home valsartan reduced to 160 mg daily due to concerns iatrogenic hypotension.
Lasix has been placed on hold due to concerns dehydration. Also medication does not appear to be necessary at this time, no clear benefit. Follow up with Cardiology before considering to resume.
Please take medications as prescribed/recommended and follow up with primary care provider and/or other healthcare provider involved in your care for refills and/or further adjustment to your medication regimen as necessary.
Referrals:
Chandu Bush MD [Active, Cardiology] - 01/14/25 3:40 pm
Referral Note: Your appt to see Dr. Bush has been rescheduled to 01/14/25 at 3:40 PM at the [facility]. Please call [phone] if you need to reschedule.
Satnam Simpson MD [Family Provider, Family Practice] - in one week
Prescriptions:
New
valsartan 160 mg Tablet
160 mg PO DAILY Qty: 30 0RF
metoprolol succinate 25 mg Tablet Extended Release 24 Hr
25 mg PO DAILY Qty: 30 0RF
Continued
tamsulosin 0.4 mg Capsule
0.8 mg PO QPM
finasteride
5 mg PO DAILY
aspirin 81 mg Tablet,Chewable
81 mg PO DAILY
Zyrtec
10 mg PO DAILY PRN (Reason: allergy)
albuterol sulfate
inhalation PRN PRN (Reason: SOB)
diclofenac sodium
topical PRN PRN (Reason: arthritis pain)
rosuvastatin
20 mg PO DAILY
omeprazole
20 mg PO DAILY
metformin
500 mg PO DAILY
Held
furosemide
20 mg PO DAILY
Hold Instructions: Hold at this time. Follow up with Cardiology to determine when safe to resume or if unnecessary to resume.
Discontinued
metoprolol succinate 50 mg Tablet Extended Release 24 Hr
50 mg PO BID
valsartan
1 tab PO DAILY
Patient Comments:
pt does not know mg
Discharge Orders:
Discharge Patient (As Directed); Ordered 12/16/24
Ordered By: Kathleen Esquivel
Discharge Date and Time
Print Language: MOSOTHO
--- NOTE | 2024-12-16 12:03 | CM ---
Reviewed chart. Met with pt and who remain upset about the OBS status. Pt is discharged .No change in DC plan
Plan: DC to home, no needs
--- NOTE | 2024-12-16 12:30 | CM ---
CM stationary steam engineer was asked to see patient due to family concerns with PELAYO form.
This CM/Glove Boarder entered the room and introduced herself, the patients spouse stated immediately stated, I do not want to talk to you.
This CM tried explaining who I was and offered that she speak with the Patient Guest Coordinator, she declined.
Per spouse she will take this up to the appropriate people if she receives a bill concerning this hospitalization.
Again CM offered for someone to speak with patient and she refused.
CM wished the patient well and left the room.
[2024-12-16] MEDS: DIOVAN 120 MG PO (13:09)
--- NOTE | 2024-12-16 14:23 | W.PN.UPDATE ---
Update Note
Progress Note Update
7 day rhythm star monitored applied by me prior to discharge. Explained how monitor works and when to change electrodes and charge. Answered questions from patient and . Updated nursing.
== END 2024-12-16 14:17 | disposition home or self-care (01) ==
LOC: 4 EAST ACU 23:52
PROVIDERS: ADMITTING PHYSICIAN Internal Medicine; ATTENDING PHYSICIAN Internal Medicine; CONSULT PHYSICIAN Internal Medicine Cardiovascular Disease; EMERGENCY PHYSICIAN Emergency Medicine; FAMILY PHYSICIAN Family Medicine
DX: R00.1 Bradycardia, unspecified (principal); E86.0 Dehydration; R55 Syncope and collapse; N40.0 Benign prostatic hyperplasia without lower urinary tract symptoms; I10 Essential (primary) hypertension; E78.00 Pure hypercholesterolemia, unspecified; E66.01 Morbid (severe) obesity due to excess calories; Z68.30 Body mass index [BMI] 30.0-30.9, adult; Z87.891 Personal history of nicotine dependence; Z79.899 Other long term (current) drug therapy
CPT/HCPCS: 70496; 70498; 80048; 80053; 82550; 83735; 84484; 85025; 85027; 93005; 93306; 99285; G0378; Q9950; Q9967

== ENCOUNTER → 2025-02-02 13:55 | Outpatient (REF) | payer BC, MEDICARE, OTHER, SELFPAY ==
[2025-02-02 17:13] LABS: PSA, Total - Diagnostic 3.83 ng/ml (0.0-4.0)
== END ==
LOC: HWLAB 13:55
PROVIDERS: ATTENDING PHYSICIAN Urology; FAMILY PHYSICIAN Family Medicine; REFERRING PHYSICIAN Nurse Practitioner
DX: R97.20 Elevated prostate specific antigen [PSA] (principal)
CPT/HCPCS: 36415; 84153

== ENCOUNTER 2025-02-27 14:18 | Inpatient (IN) | payer BC, MEDICARE, OTHER, SELFPAY ==
[2025-02-27 10:44] VITALS: BP 142/102
[2025-02-27 11:39] VITALS: BMI 30.9
[2025-02-27 12:05] LABS: COVID-19 Antigen Negative (Negative)
--- NOTE | 2025-02-27 12:09 | ED.GENMED ---
History of Present Illness
<Jose Calles MD, Resident - Last Filed: 02/27/25 14:02>
General
Chief Complaint: Breathing Problem
Source: patient
Time Seen by Provider: 02/27/25 11:40
History of Present Illness
History of Present Illness:
Patient is a 69-year-old male, with past medical history significant for WPW syndrome s/p ablation, GERD, hypothyroidism, hypertension, hypothyroidism, back issues, who is here for progressively worse cough and shortness of breath
Symptoms began 2 days ago, he tried to manage it at home with nebulizations, symptoms got worse, he went to his PCP yesterday who prescribed a tapering dose of prednisone breathing progressively got worse
He came to the ER for further evaluation. He has been feeling warm, has had body ache and overall feeling exhausted.
Reports increased work of breathing, and orthopnea.
Denies any chills, sputum production, chest pain, abdominal pain, body swelling, lightheadedness, or syncopal episodes
Past History
<Jose Calles MD, Resident - Last Filed: 02/27/25 14:02>
Past History
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
ED Past Surgical History: Cardiac (Radiofrequency ablation for WPW) and Other (Left leg vein stripping)
Social History
Tobacco: Former smoker
Alcohol: Occasional
Personal:
Living: with family
Employment: Employed
Family History
Family History: Other (Noncontributory)
Review of Systems
<Jose Calles MD, Resident - Last Filed: 02/27/25 14:02>
Review of Systems
All Other Systems: ROS reviewed and negative except as documented in HPI and ROS
Phy Exam
<Jose Calles MD, Resident - Last Filed: 02/27/25 14:02>
General Physical Exam
General Presentation: moderate distress (Due to shortness of breath)
Cardiovascular Exam
Cardiovascular Exam: regular rate/rhythm, no edema, no gallop, no murmur and normal peripheral pulses
Pulmonary Exam
Pulmonary Exam: decreased breath sounds, generalized wheezing and respiratory distress
Gastrointestinal Exam
Gastrointestinal Exam: normal bowel sounds, non tender and soft
Neurological Exam
Neurological Exam: alert and oriented x3
Musculoskeletal Exam
Musculoskeletal Exam: full ROM
Skin Exam
Skin Exam: normal color and warm/dry
Psychiatric Exam
Psychiatric Exam: normal mood/affect
Scores
<Jose Calles MD, Resident - Last Filed: 02/27/25 14:02>
Heart Failure Risk
Heart Failure Risk Score: Not Applicable
Course
<Jose Calles MD, Resident - Last Filed: 02/27/25 14:02>
Orders/Labs/Results
Orders:
Orders
02/27/25 11:38
COVID-19 Antigen Urgent
Source: Nasal Swab
Influenza A+B Rapid Molecular Urgent
SCARLET Source: Nasal Swab
Specimen Description:
02/27/25 11:40
CR Chest - 2 Views Urgent
Comment:
Reason For Exam: cough, shortness of breath
02/27/25 12:17
Dexamethasone Sod Phosphate [Decadron] 10 mg IV NOW STA
Ipratropium/Albuterol Sulfate [Duoneb] 3 ml INH R NOW ONE
02/27/25 12:18
Oseltamivir Phosphate [Tamiflu] 75 mg PO NOW ONE
02/27/25 12:33
Dexamethasone Pf [Decadron] 10 mg PO NOW STA
02/27/25 13:24
CefTRIAXone [Rocephin] 1,000 mg IV NOW ONE
02/27/25 13:49
CBC/With Diff [Complete Blood Count/With Diff] Urgent
CMP [Comprehensive Metabolic Panel] Urgent
NT-proBNP Urgent
Troponin I Urgent
Vital Signs
Initial and Last Documented VS:
Initial Vital Signs
Temp Pulse Resp BP Pulse Ox
99.0 F 92 20 142/102 97
02/27/25 10:44 02/27/25 10:44 02/27/25 10:44 02/27/25 10:44 02/27/25 10:44
Last Documented Vital Signs
Temp Pulse Resp BP Pulse Ox
99.0 F 92 20 142/102 95
02/27/25 10:44 02/27/25 10:44 02/27/25 10:44 02/27/25 10:44 02/27/25 12:10
<Ernesto Le, DO - Last Filed: 02/27/25 13:29>
Orders/Labs/Results
Orders:
Orders
02/27/25 11:38
COVID-19 Antigen Urgent
Source: Nasal Swab
Influenza A+B Rapid Molecular Urgent
SCARLET Source: Nasal Swab
Specimen Description:
02/27/25 11:40
CR Chest - 2 Views Urgent
Comment:
Reason For Exam: cough, shortness of breath
02/27/25 12:17
Dexamethasone Sod Phosphate [Decadron] 10 mg IV NOW STA
Ipratropium/Albuterol Sulfate [Duoneb] 3 ml INH R NOW ONE
02/27/25 12:18
Oseltamivir Phosphate [Tamiflu] 75 mg PO NOW ONE
02/27/25 12:33
Dexamethasone Pf [Decadron] 10 mg PO NOW STA
02/27/25 13:24
CefTRIAXone [Rocephin] 1,000 mg IV NOW ONE
02/27/25 13:49
CBC/With Diff [Complete Blood Count/With Diff] Urgent
CMP [Comprehensive Metabolic Panel] Urgent
NT-proBNP Urgent
Troponin I Urgent
Vital Signs
Initial and Last Documented VS:
Initial Vital Signs
Temp Pulse Resp BP Pulse Ox
99.0 F 92 20 142/102 97
02/27/25 10:44 02/27/25 10:44 02/27/25 10:44 02/27/25 10:44 02/27/25 10:44
Last Documented Vital Signs
Temp Pulse Resp BP Pulse Ox
99.0 F 92 20 142/102 95
02/27/25 10:44 02/27/25 10:44 02/27/25 10:44 02/27/25 10:44 02/27/25 12:10
<Jose Calles MD, Resident - Last Filed: 02/27/25 14:02>
MDM/Problems Addressed
Differential Diagnosis Includes:
Influenza
COVID
Acute viral bronchitis
Pneumonia
MDM/Problems Addressed:
COVID-negative, influenza positive
Chest x-ray shows mild bilateral lower opacities, most likely consistent with pneumonia
1 dose of Tamiflu given in the ER
Nebulizations
1 dose of 10 mg oral Decadron given in the ER
Patient worried about his worsening condition , audibly wheezing, most likely superimposed pneumonia and influenza
Plan to admit, discussed with hospitalist
<Jose Calles MD, Resident - Last Filed: 02/27/25 14:02>
*Pulse Oximetry
SaO2: 95
Oxygen Mode of Delivery: Room air
Patient hypoxic: no
*Critical Care Note
Total Time (30-74mins, 75-104mins- exclusive of procedures): Not Applicable
ED Attending Note
<Jose Calles MD, Resident - Last Filed: 02/27/25 14:02>
-
Portions of this chart may have been created with voice recognition software.� Occasional wrong word or��sound alike� substitutions may have occurred due to the inherent limitations of voice recognition software.
<Ernesto Le DO - Last Filed: 02/27/25 13:29>
ED Attending Note
Patient seen and examined by attending physician: Yes
I performed a history and physical exam of patient and discussed management with resident, I reviewed resident's note and agree with documented findings and plan of care.: Yes
ED Attending Note:
Seen with resident examined independently 69-year-old male chronic lung disease followed at [facility] not on chronic steroids URI for few days low-grade fever treated with nebs and steroids by his PCP symptoms worsened last night coughing
wheezing by evaluation he is audibly wheezing, looks dyspneic coughing influenza positive bilateral pneumonia on x-ray, concerned about him going home because he is not improving with outpatient therapy not unreasonable, will start nebs
steroids oxygen Tamiflu antibiotics
Discharge Plan
Departure
Patient Disposition: Admit
Date of Disposition: 02/27/25
Time of Disposition: 14:00
Presentation/result/management discussed w/ accepting MD/: Hospitalist
Discharge Problem:
Influenza, superimposed pneumonia
Prescriptions:
No Action
tamsulosin 0.4 mg Capsule
0.8 mg PO QPM
aspirin 81 mg Tablet,Chewable
81 mg PO DAILY
metoprolol succinate 25 mg Tablet Extended Release 24 Hr
25 mg PO DAILY Qty: 30 0RF
prednisone 10 mg Tablet
10 mg PO DAILY
Patient Comments:
started 02/25/25 MO
cetirizine 10 mg Tablet
10 mg PO DAILY
acetaminophen 500 mg Tablet
500 mg PO Q6H PRN (Reason: mild pain)
valsartan 320 mg Tablet
320 mg PO DAILY
omeprazole 20 mg Capsule,Delayed Release(Dr/Ec)
20 mg PO DAILYPRN PRN (Reason: heart burn)
rosuvastatin 20 mg Tablet
20 mg PO DAILY
diclofenac sodium 1 % Gel
2 g TOPICAL DAILY
Airsupra 90-80 mcg/actuation Hfa Aerosol Inhaler
2 inh INHALATION DAILYPRN PRN (Reason: shortness of breath)
Referrals:
Satnam Simpson MD [Family Provider, [facility]]
Interventions
Interventions:
*Risk Screen - Suicide Last Done: 02/27/25 10:44
*ED Influenza Vaccine History Last Done: 02/27/25 10:44
ED- Pulmonary Assessment Last Done: 02/27/25 11:38
Discharge Date and Time
Print Language: SYRIAC
[2025-02-27] MEDS: TAMIFLU 75 MG PO ×2 (12:41→19:48)
[2025-02-27] MEDS: DECADRON 10 MG PO (12:41)
[2025-02-27] MEDS: DUONEB 3 ML INH (12:41)
--- NOTE | 2025-02-27 13:44 | HPS.HSE ---
Addendum entered and electronically signed by Stevan Marks MD 02/27/25 14:39:
This is an addendum to the H&P written by Shannon Saldivar on 02/27/2025. 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
69-year-old male past medical history of asthma, Oslpv-Uhidvlkej-Ewzzg status post ablation, hypertension, hyperlipidemia, GERD, hypothyroidism, cervical stenosis, herniated disc, presenting with worsening cough and shortness of breath. �Symptoms
from 2 days ago. �Body aches and exhaustion and feeling warm. Dizzy, Chest soreness from cough. Treated with prednisone.�
Vital signs unremarkable. Wheezing on exam.�
Labs pending. �Chest x-ray shows mild bilateral lower lobe pneumonia with mild opacity in the basilar segments of both lower lobes. �Mild cardiomegaly. �Mildly decreased bilateral lung volumes.
Influenza positive.
Patient with influenza pneumonia with acute asthmatic bronchitis.
Patient given dexamethasone and Tamiflu and ceftriaxone in emergency room.
�Continue Tamiflu. �Empiric ceftriaxone/doxycycline. Check sputum, blood cultures. Duonebs, Dexamethasone.�
Original Note:
Family Physician
-
Family Physician: Satnam Simpson
Chief Complaint
-
fever, cough, sob.
History of Present Illness
69-year-old male, with past medical history significant for WPW syndrome s/p ablation, GERD, hypothyroidism, hypertension, hypothyroidism, back issues, who is here for progressively worse cough and shortness of breath
Symptoms began 2 days ago, he tried to manage it at home with nebulizations, symptoms got worse, he went to his PCP on Sunday who prescribed a tapering dose of prednisone with no improvement in his symptoms. patient was wheezing last night. his
forehead felt warm and his eyes were tearing. his chest feels sore from cough. his sputum is pale greenish color. denied dizzy or syncope.denied abdominal pain,n,v,d. denied dysuria or hematuria.
Patient tested positive for influenza, chest x-ray with pneumonia. Patient received a dose of dexamethasone, nebs, Tamiflu, ceftriaxone in the ER. Admitting for further management
Medical History
Past Medical History
Past Medical History: Reports Other
Additional Past Medical History:
Hypertension, varicose veins, esophageal dysphagia, GERD, multiple lipomas, hyperlipidemia, osteoarthritis, history of sleep apnea, angioedema, Serra Parkinson's White syndrome, thyroid nodule, BPH
Past Surgical History: Reports Other
Additional Past Surgical History:
Cardiac ablation
Social History
Tobacco: Former Smoker
Alcohol: Occasional
Personal:
Living: With Family
Family History
Family History: Not pertinent
Allergies / Home Medications
Allergies reflects when Allergies were last updated in [facility].
Home Medications with original date entered in [facility]
Allergy/Medication List:
Allergies
Allergy/AdvReac Type Severity Reaction Status Date / Time
No Known Allergies Allergy Verified 02/27/25 10:44
Home Medications
tamsulosin 0.4 mg capsule 0.8 mg PO QPM Urinary Issue 12/14/24
aspirin 81 mg chewable tablet 81 mg PO DAILY 12/16/24
metoprolol succinate 25 mg tablet,extended release 24 hr 25 mg PO DAILY #30 tabs 12/16/24
acetaminophen 500 mg tablet 500 mg PO Q6H PRN mild pain 02/27/25
albuterol 90 mcg-budesonide 80 mcg/actuation HFA aerosol inhaler (Airsupra) 2 inh inhalation DAILYPRN PRN shortness of breath 02/27/25
cetirizine 10 mg tablet 10 mg PO DAILY 02/27/25
diclofenac sodium 1 % topical gel 2 g topical DAILY back & shoulders 02/27/25
omeprazole 20 mg capsule,delayed release 20 mg PO DAILYPRN PRN heart burn 02/27/25
prednisone 10 mg tablet 10 mg PO DAILY 02/27/25
rosuvastatin 20 mg tablet 20 mg PO DAILY 02/27/25
valsartan 320 mg tablet 320 mg PO DAILY 02/27/25
Review of Systems
-
Constitutional: Reports No Symptoms
EENT: Reports No Symptoms
Respiratory: Reports Cough and Trouble Breathing
Cardiac: Reports No Symptoms
Abdomen/GI: Reports No Symptoms
: Reports No Symptoms
Musculoskeletal: Reports No Symptoms
Skin: Reports No Symptoms
Neurological: Reports Headache and Weakness
Endocrine: Reports No Symptoms
Hematologic/Lymphatic: Reports No Symptoms
Psych: Reports No Symptoms
Physical Exam
Vital Signs
Vital Signs
Temp Pulse Resp BP Pulse Ox
99.0 F 92 20 142/102 95
02/27/25 10:44 02/27/25 10:44 02/27/25 10:44 02/27/25 10:44 02/27/25 12:10
Physical Exam
General: Well Developed, Well Nourished and No Apparent Distress
HEENT: NormoCephalic, Moist mucous membranes and Atraumatic
Respiratory: Clear
Cardiac: S1/S2 and Regular Rhythm; No Murmur or Rub
GI: Soft, Non Tender, Non Distended and Normal Bowel Sounds; No Organomegaly
Rectal: Deferred by Provider
Musculoskeletal: No Clubbing, No Cyanosis and No Edema
Skin: No Rash
Neuro: AO x 3 and Nonfocal/grossly intact
Psych: Calm
Data Reviewed
-
Diagnostic Radiology: Report Reviewed by me
Lab Data: Labs Reviewed by me
Impression/Plan
-
#influenza positive with superimposed pneumonia
-covid negative
-chest x ray with MILD BILATERAL LOWER LOBE PNEUMONIA with mild opacity in the basilar segments of both lower lobes. Mildly decreased bilateral lung volumes.Mild cardiomegaly.
-IV ceftriaxone continue
-nebs prn
-steroids prn
- Tamiflu continued
-Tylenol as needed for fever or pain
- Mucinex as needed for cough
#History of WPW status post ablation 2004
#Essential hypertension
- Metoprolol, Valsartan continued
#Hyperlipidemia
- Statin continued
#BPH recently started on tamsulosin
#DVT prophylaxis
- Lovenox
#
CODE STATUS
Full code
[2025-02-27] MEDS: ROCEPHIN 1000 MG IV (14:01)
[2025-02-27 14:05] LABS: Hematocrit 41.5 % (39.0-52.0); Hemoglobin 14.4 g/dL (13.0-18.0); Mean Corp Hgb Conc. 34.7 g/dL (33.0-37.0); Mean Corpuscular Volume 94.3 fL (80.0-94.0); Nucleated Red Blood Cells % 0 % (-); Platelet Count 180 10^3/uL (130-400); Red Cell Dist. Width 13.0 % (11.5-14.5)
[2025-02-27 14:06] VITALS: BP 156/83
[2025-02-27 14:21] LABS: ALT (SGPT) 19 U/L (0-50); AST (SGOT) 23 U/L (17-59); Albumin 4.2 g/dl (3.5-5.0); Alkaline Phosphatase 63 U/L (38-126); Blood Urea Nitrogen 16 mg/dl (9-20); Calcium 8.3 mg/dl (8.4-10.2); Carbon Dioxide 30 mmol/L (22-30); Chloride 99 mmol/L (98-107); Estimated Creatinine Clearance 96 ml/min; Glucose 135 mg/dl (70-99); Potassium 3.8 mmol/L (3.5-5.1); Sodium 134 mmol/L (135-145); Total Protein 7.1 g/dl (6.3-8.2); eGFR > 60.00
[2025-02-27 14:33] LABS: Troponin I 0.017 ng/ml
--- NOTE | 2025-02-27 15:18 | EDRN ---
Report tubed; room not ready. Pt ate boxed lunch.
[2025-02-27 15:48] VITALS: BP 155/93
[2025-02-27 15:50] VITALS: BMI 30.1
[2025-02-27] MEDS: TYLENOL 650 MG PO (16:26)
[2025-02-27] MEDS: FLOMAX 0.8 MG PO (17:53)
[2025-02-27] MEDS: LOVENOX 40 MG SC (17:53)
[2025-02-27] MEDS: MUCINEX 600 MG PO (19:48)
[2025-02-27] MEDS: VIBRAMYCIN 100 MG PO (19:48)
[2025-02-27] MEDS: DECADRON 4 MG IV (22:06)
[2025-02-27] MEDS: FLUSH (NSS) 2 FLUSH IV (22:08)
[2025-02-27 23:49] VITALS: BP 132/75
[2025-02-28] MEDS: DECADRON 4 MG IV ×2 (05:55→15:09)
[2025-02-28] MEDS: FLUSH (NSS) 2 FLUSH IV (05:57)
[2025-02-28 07:09] VITALS: BP 156/94
[2025-02-28 07:34] LABS: Hematocrit 43.3 % (39.0-52.0); Hemoglobin 14.7 g/dL (13.0-18.0); Mean Corp Hgb Conc. 33.9 g/dL (33.0-37.0); Mean Corpuscular Volume 93.3 fL (80.0-94.0); Platelet Count 207 10^3/uL (130-400); Red Cell Dist. Width 12.8 % (11.5-14.5)
[2025-02-28 07:54] LABS: Blood Urea Nitrogen 18 mg/dl (9-20); Calcium 8.7 mg/dl (8.4-10.2); Carbon Dioxide 30 mmol/L (22-30); Chloride 101 mmol/L (98-107); Estimated Creatinine Clearance 96 ml/min; Glucose 131 mg/dl (70-99); Potassium 4.5 mmol/L (3.5-5.1); Sodium 138 mmol/L (135-145); eGFR > 60.00
[2025-02-28] MEDS: LOW STRENGTH ASPIRIN 81 MG PO (09:38)
[2025-02-28] MEDS: DIOVAN 320 MG PO (09:38)
[2025-02-28] MEDS: TAMIFLU 75 MG PO ×2 (09:38→20:50)
[2025-02-28] MEDS: TOPROL XL 25 MG PO (09:38)
[2025-02-28] MEDS: MUCINEX 600 MG PO ×2 (09:38→20:48)
[2025-02-28] MEDS: CRESTOR 20 MG PO (09:39)
[2025-02-28] MEDS: VIBRAMYCIN 100 MG PO ×2 (09:40→20:48)
[2025-02-28] MEDS: ANESTHETIC LOZENGE 1 LOZENGE PO (09:52)
--- NOTE | 2025-02-28 11:14 | W.PN.HOSP.TC ---
Today's Communication/Plan
-
- Continue Tamiflu
- Ordered MRSA swab
- Will continue antibiotics for 5 days
- Wean oxygen as able
- Chest percussion, incentive spirometer ordered
- Possible discharge tomorrow
Assessment / Plan
Assessment / Plan
#Influenza A+,
#Bilateral pneumonia
#Acute bronchitis
- COVID-negative
- Chest x-ray showing mild bilateral lower lobe pneumonia with mild opacity in the basilar segments of both lower lobes. Mild decreased bilateral lung volumes. Mild cardiomegaly.
- Started Tamiflu 75 mg twice daily on 02/27
- Started on IV ceftriaxone and doxycycline on 02/27
- DuoNebs as needed
- Started on prednisone outpatient by PCP on 02/25
- Continued on dexamethasone 4 mg IV 3 times daily
- Mucinex 600 mg Q12 for cough
- Will order MRSA swab
- Chest percussion ordered
- Throat lozenges and spray provided for sore throat
#Hypertension
- Continue valsartan and metoprolol
#Hyperlipidemia
- Statin continued
#BPH
- Continue tamsulosin
- Continue finasteride
#History of WPW
- S/p ablation 2004
Anticipated Discharge: Within 24 hours
Subjective/Interval History
-
Date of Service: February 28, 2025
Patient is a 69-year-old male who presented with worsening cough and shortness of breath 2 days ago. Patient found to be influenza A positive. Patient states that he is feeling a little better today with increased energy and improved SOB. Patient
is currently on 2 L nasal cannula regularly on room air.
Objective Data
-
Labs:
Laboratory Results
02/28/25
06:37
WBC 4.7 L
Hgb 14.7
Hct 43.3
Plt Count 207
Sodium 138
Potassium 4.5
Chloride 101
Carbon Dioxide 30
BUN 18
Creatinine 0.8
Glucose 131 H
Calcium 8.7
Vital Signs:
Vital Signs
Temp Pulse Resp BP Pulse Ox
98.1 F 67 18 156/94 95
02/28/25 07:09 02/28/25 09:38 02/28/25 07:09 02/28/25 09:38 02/28/25 07:09
I&O
02/27/25 02/28/25 03/01/25
06:59 06:59 06:59
Intake Total 960 / 960
Balance 960 / 960
Review of Systems
-
History Source: Patient
Constitutional: Reports No Symptoms
EENT: Reports Sore Throat
Respiratory: Reports Cough, Trouble Breathing (Shortness of breath) and Wheezing
Cardiac: Reports No Symptoms
Abdomen/GI: Reports No Symptoms
Genitourinary: Reports No Symptoms
Musculoskeletal: Reports No Symptoms
Skin: Reports No Symptoms
Neuro: Reports No Symptoms
Endocrine: Reports No Symptoms
Hematologic / Lymphatic: Reports No Symptoms
Allergy / Immunology: Reports No Symptoms
Physical Exam
-
General: Well Developed, Well Nourished and No Apparent Distress
HEENT: Normocephalic, Atraumatic and Moist Mucous Membranes
Respiratory: Clear to Auscultation (No wheezing, rhonchi or crackles appreciated. Productive cough noted)
Cardiac: Regular Rhythm
GI: Soft, Nontender and Nondistended
Musculoskeletal: No Edema
Skin: Warm and Dry
Neuro: Awake, Alert and Oriented
Psych: Calm
[2025-02-28] MEDS: PROSCAR 5 MG PO (12:08)
--- NOTE | 2025-02-28 12:44 | W.PN.UPDATE ---
Update Note
Progress Note Update
Discussed case with resident
HPI: 69-year-old male past medical history of asthma, Muiyx-Owtqhfldy-Unnxz status post ablation, hypertension, hyperlipidemia, GERD, hypothyroidism, cervical stenosis, herniated disc, p/w cough and shortness of breath. 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
also c/o body aches.
Chest x-ray shows mild bilateral lower lobe pneumonia with mild opacity in the basilar segments of both lower lobes. �Mild cardiomegaly. �Mildly decreased bilateral lung volumes.
Influenza positive.
A/P:
# Influenza A infection ,
# Possible CAP/ Bilateral pneumonia
# Acute bronchitis
COVID-negative
Chest x-ray showing mild bilateral lower lobe pneumonia with mild opacity in the basilar segments of both lower lobes. Mild decreased bilateral lung volumes. Mild cardiomegaly.
Cont Tamiflu x5 days
Can continue empiric ceftriaxone and doxycycline x5 days, agree with checking MRSA screen
Cont Dexamethasone, taper down to 4 mg Q12H
DuoNebs as needed
Mucinex 600 mg Q12 for cough
Chest percussion ordered
Throat lozenges and spray provided for sore throat
# Hypertension
Continue valsartan and metoprolol
# Hyperlipidemia
Statin continued
# BPH
Continue tamsulosin, finasteride
# History of WPW S/p ablation 2004
DVT ppx: Lovenox SQ
FC
--- NOTE | 2025-02-28 14:58 | CM ---
Initial assessment completed with patient who lives with his in a 3 story home with no basement, B/B on 2nd, no 1/2 bath on 1st, 2 steps to enter. 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 Has
and uses a CPAP. No in-home services. Does have HC-POA. Has [employer] benefits. PCP is DR. Satnam Simpson. [facility]acy [facility] in [place]. Discharge POC: Anticipate home with no needs.
[2025-02-28] MEDS: ROCEPHIN 1000 MG IV (15:08)
[2025-02-28] MEDS: STERILE WATER FOR INJECTION 10 ML IV (15:08)
[2025-02-28 15:37] VITALS: BP 150/94
[2025-02-28] MEDS: FLOMAX 0.8 MG PO (17:36)
[2025-02-28] MEDS: LOVENOX 40 MG SC (17:36)
[2025-03-01 00:06] VITALS: BP 115/91
[2025-03-01] MEDS: DECADRON 4 MG IV (00:40)
[2025-03-01] MEDS: FLUSH (NSS) 2 FLUSH IV (00:40)
[2025-03-01 07:50] VITALS: BP 136/74
[2025-03-01 08:24] LABS: Hematocrit 44.4 % (39.0-52.0); Hemoglobin 15.3 g/dL (13.0-18.0); Mean Corp Hgb Conc. 34.5 g/dL (33.0-37.0); Mean Corpuscular Volume 93.3 fL (80.0-94.0); Nucleated Red Blood Cells % 0 % (-); Platelet Count 249 10^3/uL (130-400); Red Cell Dist. Width 12.5 % (11.5-14.5)
[2025-03-01 08:27] LABS: Blood Urea Nitrogen 21 mg/dl (9-20); Calcium 8.9 mg/dl (8.4-10.2); Carbon Dioxide 30 mmol/L (22-30); Chloride 100 mmol/L (98-107); Estimated Creatinine Clearance 96 ml/min; Glucose 114 mg/dl (70-99); Potassium 4.1 mmol/L (3.5-5.1); Sodium 138 mmol/L (135-145); eGFR > 60.00
[2025-03-01] MEDS: TAMIFLU 75 MG PO (09:27)
[2025-03-01] MEDS: VIBRAMYCIN 100 MG PO (09:27)
[2025-03-01] MEDS: DIOVAN 320 MG PO (09:27)
[2025-03-01] MEDS: CRESTOR 20 MG PO (09:28)
[2025-03-01] MEDS: LOW STRENGTH ASPIRIN 81 MG PO (09:28)
[2025-03-01] MEDS: TOPROL XL 25 MG PO (09:28)
[2025-03-01] MEDS: MUCINEX 600 MG PO (09:28)
[2025-03-01] MEDS: PROSCAR 5 MG PO (09:28)
--- NOTE | 2025-03-01 12:00 | W.PN.HOSP.TC ---
Today's Communication/Plan
-
- Will continue antibiotics for 5 days total: Doxycycline and cefdinir
- Will continue Tamiflu for 5 days total
- Will discharge patient on 2 days of prednisone 40 mg daily
- Discharge today
Assessment / Plan
Assessment / Plan
#Influenza A+,
#Bilateral pneumonia
#Acute bronchitis
- COVID-negative
- Chest x-ray showing mild bilateral lower lobe pneumonia with mild opacity in the basilar segments of both lower lobes. Mild decreased bilateral lung volumes. Mild cardiomegaly.
- Started Tamiflu 75 mg twice daily on 02/27 will continue for total 5 days
- Started on IV ceftriaxone and doxycycline on 02/27 will continue for total 5 days antibiotics
- DuoNebs as needed
- Started on prednisone outpatient by PCP on 02/25
- Continued on dexamethasone will transition to prednisone at discharge
- Mucinex 600 mg Q12 for cough
- MRSA swab pending
- Chest percussion
- Throat lozenges and spray provided for sore throat
#Hypertension
- Continue valsartan and metoprolol
#Hyperlipidemia
- Statin continued
#BPH
- Continue tamsulosin
- Continue finasteride
#History of WPW
- S/p ablation 2004
Anticipated Discharge: Today
Subjective/Interval History
-
Date of Service: March 01, 2025
Patient seen this morning sitting up in his chair. present. He states he is feeling better this morning with increased energy although he still notes a productive cough. Patient's now is being treated for influenza with Tamiflu as well.
Patient would like to be discharged today.
Objective Data
-
Labs:
Laboratory Results
03/01/25
07:19
WBC 9.5
Hgb 15.3
Hct 44.4
Plt Count 249 D
Sodium 138
Potassium 4.1
Chloride 100
Carbon Dioxide 30
BUN 21 H
Creatinine 0.8
Glucose 114 H
Calcium 8.9
Vital Signs:
Vital Signs
Temp Pulse Resp BP Pulse Ox
98.2 F 71 18 136/74 97
03/01/25 07:50 03/01/25 07:50 03/01/25 07:50 03/01/25 07:50 03/01/25 07:50
I&O
02/28/25 03/01/25 03/02/25
06:59 06:59 06:59
Intake Total 960 / 960 1320 / 1320
Balance 960 / 960 1320 / 1320
Review of Systems
-
History Source: Patient
Constitutional: Reports No Symptoms
EENT: Reports Sore Throat
Respiratory: Reports Cough, Trouble Breathing (Shortness of breath) and Wheezing
Cardiac: Reports No Symptoms
Abdomen/GI: Reports No Symptoms
Genitourinary: Reports No Symptoms
Musculoskeletal: Reports No Symptoms
Skin: Reports No Symptoms
Neuro: Reports No Symptoms
Endocrine: Reports No Symptoms
Hematologic / Lymphatic: Reports No Symptoms
Allergy / Immunology: Reports No Symptoms
Physical Exam
-
General: Well Developed, Well Nourished and No Apparent Distress
HEENT: Normocephalic, Atraumatic and Moist Mucous Membranes
Respiratory: Clear to Auscultation (No wheezing, rhonchi or crackles appreciated. Productive cough noted)
Cardiac: Regular Rhythm
GI: Soft, Nontender and Nondistended
Musculoskeletal: No Edema
Skin: Warm and Dry
Neuro: Awake, Alert and Oriented
Psych: Calm
--- NOTE | 2025-03-01 12:03 | W.DCSUMMARY ---
Documented by User: Ayanna Milan DO, Resident 03/01/25 13:16
Discharge Summary
Discharge Data
Date of Admission: 02/27/25
Date of Discharge: 03/01/25
-
Pending Results: Yes
Additional Pending Results:
MRSA swab
Hospital Course
Primary diagnosis: Influenza A infection, possible CAP/bilateral pneumonia, acute bronchitis
Secondary diagnosis: Hypertension, hyperlipidemia, BPH
Hospital course:
Patient is a 69-year-old male with PMH significant for asthma, Yzbau-Qoyxfhaeo-Evxed s/p ablation, hypertension, hyperlipidemia, GERD who presented with a cough and shortness of breath. Patient states that he first noticed the shortness of breath 2
days earlier and that it worsened with fatigue and generalized weakness. Patient went to PCP on Sunday 02/25 and received prednisone for suspected bronchitis. When patient was not improving on the steroids, he decided to present to the ED.
In the ED patient tested positive for influenza A. Chest x-ray indicated mild bilateral lower lobe pneumonia. Patient was started on Tamiflu, antibiotics for possible superimposed infection and steroids and admitted for further workup. Over the
course of admission, patient's breathing, cough, and energy continue to improve. Patient was initially placed on 2 L oxygen nasal cannula on admission which she was weaned back to room air. Patient used his incentive spirometer and had thoracic
percussion completed by respiratory. By day 2 of the admission patient was feeling well enough to go home. Patient will be discharged with the remaining doses of a total of 5-day course of antibiotics, 5-day course of Tamiflu, and 5-day course of
steroids.
Patient will be discharged home today.
Imaging:
02/27/2025 chest x-ray
IMPRESSION:
1. MILD BILATERAL LOWER LOBE PNEUMONIA with mild opacity in the basilar segments of both lower lobes.
2. Mildly decreased bilateral lung volumes.
3. Mild cardiomegaly.
Discharge Plan
-
Patient Disposition: Home (Routine Discharge)
Discharge Diagnosis/Procedures: Influenza A infection ,
Possible CAP/ Bilateral pneumonia
Acute bronchitis
Condition: Fair
Diet: No restrictions
Activity: No restrictions
Driving Restrictions: As prior to admission
Bathing Restrictions: None
Activity Restrictions/Additional Instructions:
Please continue both antibiotics for 2 more days. Take evening doses tonight 03/01.
Please continue Tamiflu for 2 more days. Take evening dose tonight 03/01.
Please continue prednisone 40 mg daily for 2 more days starting tomorrow 03/02.
Please follow-up with your PCP within 4 weeks of discharge.
Stand Alone Forms: Return to Work
Referrals:
Satnam Simpson MD [Family Provider, [facility]]
Prescriptions:
New
doxycycline hyclate 100 mg Capsule
100 mg PO BID 2 Days Qty: 5 0RF
oseltamivir 75 mg Capsule
75 mg PO BID 2 Days Qty: 5 0RF
prednisone 20 mg tablet
40 mg PO DAILY Qty: 4 0RF
cefdinir 300 mg capsule
300 mg PO BID Qty: 5 0RF
Continued
tamsulosin 0.4 mg Capsule
0.8 mg PO QPM
aspirin 81 mg Tablet,Chewable
81 mg PO DAILY
metoprolol succinate 25 mg Tablet Extended Release 24 Hr
25 mg PO DAILY Qty: 30 0RF
cetirizine 10 mg Tablet
10 mg PO DAILY
acetaminophen 500 mg Tablet
500 mg PO Q6H PRN (Reason: mild pain)
valsartan 320 mg Tablet
320 mg PO DAILY
omeprazole 20 mg Capsule,Delayed Release(Dr/Ec)
20 mg PO DAILYPRN PRN (Reason: heart burn)
rosuvastatin 20 mg Tablet
20 mg PO DAILY
diclofenac sodium 1 % Gel
2 g TOPICAL DAILY
Airsupra 90-80 mcg/actuation Hfa Aerosol Inhaler
2 inh INHALATION DAILYPRN PRN (Reason: shortness of breath)
finasteride [Proscar] 5 mg Tablet
10 mg PO DAILY
Discontinued
prednisone 10 mg Tablet
10 mg PO DIRECTED
Rx Instructions:
4 tablets once a day for 4 days, 3 tablets once a day for 2 days, 2 tablets once a day for 2 days, 1 tablet once a day for 1 day, Orally, 9 days, 27 tablet,
Discharge Orders:
Discharge Patient (As Directed); Ordered 03/01/25
Ordered By: Ayanna Milan
Discharge Date and Time
Discharge Date/Time: 03/01/25 12:06
Print Language: LIBYAN

Documented by User: Galina Estevez MD 03/01/25 14:30
Discharge Summary
Discharge Data
Date of Admission: 02/27/25
Date of Discharge: 03/01/25
Hospital Course
Primary diagnosis: Influenza A infection, possible CAP/bilateral pneumonia, acute bronchitis
Secondary diagnosis: Hypertension, hyperlipidemia, BPH
Hospital course:
Patient is a 69-year-old male with PMH significant for asthma, Nmmos-Eefzszgfd-Szysi s/p ablation, hypertension, hyperlipidemia, GERD who presented with cough and shortness of breath. Patient states that he first noticed the shortness of breath 2
days prior to admission which got worse, and he was feeling fatigued with generalized weakness. Patient went to PCP on Sunday 02/25 and received prednisone for suspected bronchitis. When patient was not improving on the steroids, he decided to
present to the ED.
In the ED, the patient was tested positive for influenza A. His chest x-ray indicated mild bilateral lower lobe pneumonia. Patient was started on Tamiflu, antibiotics for possible superimposed infection, and steroids.
Over the course of admission, patient's breathing, cough, and energy improved. Patient was initially placed on 2 L oxygen nasal cannula on admission which was weaned back to room air.
He was discharged to complete the remaining doses of the total 5-day course of antibiotics, 5-day course of Tamiflu, and 5-day course of steroids.
Imaging:
02/27/2025 chest x-ray
IMPRESSION:
1. MILD BILATERAL LOWER LOBE PNEUMONIA with mild opacity in the basilar segments of both lower lobes.
2. Mildly decreased bilateral lung volumes.
3. Mild cardiomegaly.
Discharge Plan
-
Patient Disposition: Home (Routine Discharge)
Discharge Diagnosis/Procedures: Influenza A infection ,
Possible CAP/ Bilateral pneumonia
Acute bronchitis
Condition: Fair
Diet: No restrictions
Activity: No restrictions
Driving Restrictions: As prior to admission
Bathing Restrictions: None
Activity Restrictions/Additional Instructions:
Please continue both antibiotics for 2 more days. Take evening doses tonight 03/01.
Please continue Tamiflu for 2 more days. Take evening dose tonight 03/01.
Please continue prednisone 40 mg daily for 2 more days starting tomorrow 03/02.
Please follow-up with your PCP within 4 weeks of discharge.
Stand Alone Forms: Return to Work
Referrals:
Satnam Simpson MD [Family Provider, [facility]]
Prescriptions:
New
doxycycline hyclate 100 mg Capsule
100 mg PO BID 2 Days Qty: 5 0RF
oseltamivir 75 mg Capsule
75 mg PO BID 2 Days Qty: 5 0RF
prednisone 20 mg tablet
40 mg PO DAILY Qty: 4 0RF
cefdinir 300 mg capsule
300 mg PO BID Qty: 5 0RF
Continued
tamsulosin 0.4 mg Capsule
0.8 mg PO QPM
aspirin 81 mg Tablet,Chewable
81 mg PO DAILY
metoprolol succinate 25 mg Tablet Extended Release 24 Hr
25 mg PO DAILY Qty: 30 0RF
cetirizine 10 mg Tablet
10 mg PO DAILY
acetaminophen 500 mg Tablet
500 mg PO Q6H PRN (Reason: mild pain)
valsartan 320 mg Tablet
320 mg PO DAILY
omeprazole 20 mg Capsule,Delayed Release(Dr/Ec)
20 mg PO DAILYPRN PRN (Reason: heart burn)
rosuvastatin 20 mg Tablet
20 mg PO DAILY
diclofenac sodium 1 % Gel
2 g TOPICAL DAILY
Airsupra 90-80 mcg/actuation Hfa Aerosol Inhaler
2 inh INHALATION DAILYPRN PRN (Reason: shortness of breath)
finasteride [Proscar] 5 mg Tablet
10 mg PO DAILY
Discontinued
prednisone 10 mg Tablet
10 mg PO DIRECTED
Rx Instructions:
4 tablets once a day for 4 days, 3 tablets once a day for 2 days, 2 tablets once a day for 2 days, 1 tablet once a day for 1 day, Orally, 9 days, 27 tablet,
Discharge Orders:
Discharge Patient (As Directed); Ordered 03/01/25
Ordered By: Ayanna Milan
Discharge Date and Time
Discharge Date/Time: 03/01/25 12:06
Print Language: LIBYAN
--- NOTE | 2025-03-01 12:15 | W.PN.UPDATE ---
Update Note
Progress Note Update
Discussed case with resident
HPI: 69-year-old male past medical history of asthma, Rddnp-Egfeqglpd-Rqwfs status post ablation, hypertension, hyperlipidemia, GERD, hypothyroidism, cervical stenosis, herniated disc, p/w cough and shortness of breath. Symptoms from 2 days ago [employer],
also c/o body aches.
Chest x-ray shows mild bilateral lower lobe pneumonia with mild opacity in the basilar segments of both lower lobes. �Mild cardiomegaly. Mildly decreased bilateral lung volumes.
Influenza positive.
A/P:
# Influenza A infection,
# Possible CAP/ Bilateral pneumonia
# Acute bronchitis
COVID-negative
Chest x-ray showed mild bilateral lower lobe pneumonia with mild opacity in the basilar segments of both lower lobes. Mild decreased bilateral lung volumes. Mild cardiomegaly.
Cont Tamiflu x5 days total
Can continue empiric Abx ceftriaxone and doxycycline, agree with checking MRSA screen, Abx can be changed to PO Cefdinir and doxycycline upon discharge to complete 5 days course
Dexamethasone 4 mg Q12H -> Prednisone 40 mg for 2 more days (total steroid course 5 days)
DuoNebs as needed
Mucinex 600 mg Q12 for cough
Chest percussion while in the hospital
Throat lozenges and spray provided for sore throat
# Hypertension
Continue valsartan and metoprolol
# Hyperlipidemia
Statin continued
# BPH
Continue tamsulosin, finasteride
# History of WPW S/p ablation 2004
DVT ppx: Lovenox SQ
FC
DW at bedside
== END 2025-03-01 12:06 | disposition home or self-care (01) | DRG 195 ==
LOC: 2 NORTH 14:18
PROVIDERS: Registered Nurse; ADMITTING PHYSICIAN Hospitalist; ATTENDING PHYSICIAN Internal Medicine; EMERGENCY PHYSICIAN Emergency Medicine; FAMILY PHYSICIAN Family Medicine
PROC: 5A09357 Assistance with Respiratory Ventilation, Less than 24 Consecutive Hours, Continuous Positive Airway Pressure (ICD-10-PCS; 2025-02-27)
DX: J10.08 Influenza due to other identified influenza virus with other specified pneumonia (principal); J45.901 Unspecified asthma with (acute) exacerbation; J20.9 Acute bronchitis, unspecified; I10 Essential (primary) hypertension; N40.0 Benign prostatic hyperplasia without lower urinary tract symptoms; E03.9 Hypothyroidism, unspecified; K21.9 Gastro-esophageal reflux disease without esophagitis; M48.02 Spinal stenosis, cervical region; Z11.52 Encounter for screening for COVID-19; Z79.899 Other long term (current) drug therapy; Z87.891 Personal history of nicotine dependence
CPT/HCPCS: 71046; 80048; 80053; 83880; 84484; 85025; 85027; 87070; 87205; 87449; 87502; 87811; 87899; 94640; 94660; 94667; 96374; 96375; 99285

== ENCOUNTER → 2025-03-15 10:47 | Outpatient (REF) | payer BC, MEDICARE, OTHER, SELFPAY | LOC: MRI 3T 10:47 | PROVIDERS: ATTENDING PHYSICIAN Nurse Practitioner; FAMILY PHYSICIAN Family Medicine | DX: R97.20 Elevated prostate specific antigen [PSA] (principal) | CPT/HCPCS: 72197 ==